=== PATIENT | female | born 2000 | race Caucasian/White ===

== ENCOUNTER 2021-01-20 17:34 | Emergency (ER) | payer OTHER ==
[~2021-01-20] VITALS: Ht 175.2 cm; Wt 127.0 kg
== END 2021-01-20 20:32 | disposition home or self-care (01) ==
LOC: ED 17:34
DX: S86.912A Strain of unspecified muscle(s) and tendon(s) at lower leg level, left leg, initial encounter (principal); X50.1XXA Overexertion from prolonged static or awkward postures, initial encounter; Y93.89 Activity, other specified; Y92.89 Other specified places as the place of occurrence of the external cause; Y99.9 Unspecified external cause status

== ENCOUNTER → 2021-05-12 | Outpatient (CLI) | payer OTHER | END | disposition home or self-care (01) | LOC: LAB 14:53 | PROVIDERS: ATTEND Internal Medicine | DX: Z20.822 Contact with and (suspected) exposure to COVID-19 (principal) ==

== ENCOUNTER 2022-11-14 16:46 | Emergency (ER) | payer OTHER ==
[~2022-11-14] VITALS: Ht 175.2 cm; Wt 125.2 kg
== END 2022-11-14 18:35 | disposition short-term general hospital (02) ==
LOC: ED 16:46
DX: O42.913 Preterm premature rupture of membranes, unspecified as to length of time between rupture and onset of labor, third trimester (principal); Z3A.30 30 weeks gestation of pregnancy

== ENCOUNTER 2023-06-21 19:24 | Emergency (ER) | payer OTHER ==
[~2023-06-21] VITALS: Ht 175.2 cm; Wt 122.5 kg
[2023-06-21] MEDS ORDERED: VIBRAMYCIN100 MG PO (21:45)
== END 2023-06-21 21:54 | disposition home or self-care (01) ==
LOC: ED 19:24
DX: S30.861A Insect bite (nonvenomous) of abdominal wall, initial encounter (principal); Z87.891 Personal history of nicotine dependence; W57.XXXA Bitten or stung by nonvenomous insect and other nonvenomous arthropods, initial encounter; Y93.89 Activity, other specified; Y92.89 Other specified places as the place of occurrence of the external cause; Y99.8 Other external cause status

== ENCOUNTER 2024-07-25 21:49 | Emergency (ER) | payer OTHER ==
[~2024-07-25] VITALS: Ht 175.2 cm; Wt 140.8 kg
[~2024-07-25 21:49] MED LIST: VIBRAMYCIN100 MG PO
[2024-07-25] MEDS ORDERED: AMOX-CLAV 875-1 EACH PO (22:04)
[2024-07-25] MEDS ORDERED: Acetaminophen/Hydrocodone 5 MG/325 MG TABLET PO ONE (22:05)
[2024-07-25] MEDS ORDERED: Amoxicillin/Clavulanate Pota 875 MG TAB PO ONE (22:05)
== END 2024-07-25 22:21 | disposition home or self-care (01) ==
LOC: ED 21:49
DX: S02.5XXA Fracture of tooth (traumatic), initial encounter for closed fracture (principal); K04.7 Periapical abscess without sinus; Z79.2 Long term (current) use of antibiotics; X58.XXXA Exposure to other specified factors, initial encounter; Y93.89 Activity, other specified; Y92.89 Other specified places as the place of occurrence of the external cause; Y99.8 Other external cause status

== ENCOUNTER 2024-07-29 21:30 | Emergency (ER) | payer OTHER ==
[~2024-07-29] VITALS: Ht 175.2 cm; Wt 95.3 kg
[~2024-07-29 21:30] MED LIST changes: +AMOX-CLAV 875-1 EACH PO
[2024-07-29] MEDS ORDERED: AMITRIPTYLINE50 MG PO (21:44)
[2024-07-29] MEDS ORDERED: SODIUM CHLORIDE 0.9% 1,000 ML IV ONE (22:10)
[2024-07-29] MEDS ORDERED: Ondansetron Hydrochloride 4 MG/2 ML VIAL IV ONE (22:10)
[2024-07-29] MEDS ORDERED: Ketorolac Tromethamine 15 MG/ML VIAL IV ONE (22:10)
[2024-07-29] MEDS ORDERED: IOHEXOL 300 MG/ML 100 ML VIAL IV ONE (22:15)
[2024-07-29 22:25] LABS: BASO % 0.2 % (0.0-1.0); EOS # 0.2 10*3/uL (0.0-0.4); EOS % 1.3 % (1.0-4.0); HEMATOCRIT 44.9 % (37.0-47.0); LYMPH # 4.1 10*3/uL (1.3-4.4); LYMPH % 30.6 % (27.0-41.0); MEAN CELL VOLUME 85.7 fl (81.0-99.0); MEAN CORPUSCULAR HGB 26.7 pg (27.0-31.0); MEAN CORPUSCULAR HGB CONC 31.2 g/dl (33.0-37.0); MEAN PLATELET VOLUME 11.3 fl (9.6-12.3); MONO # 0.8 10*3/uL (0.1-1.0); MONO % 6.1 % (3.0-9.0); NEUT # 8.2 10*3/uL (2.3-7.9); NEUT % 61.4 % (47.0-73.0); PLATELET COUNT AUTOMATED 321 10*3/uL (130-400); RED BLOOD COUNT 5.24 10*6/uL (4.10-5.10); WHITE BLOOD COUNT 13.4 10*3/uL (4.8-10.8)
[2024-07-29 22:35] LABS: BILIRUBIN Negative (Negative); BLOOD 3+ (Negative); CLARITY Cloudy (Clear); COLOR Orange (Yellow); GLUCOSE Negative (Negative); KETONE Trace (Negative); LEUKO ESTERASE 1+ (Negative); NITRITE Negative (Negative); PH 5.5 (4.5-8.0); SPECIFIC GRAVITY >= 1.030 (1.001-1.030)
[2024-07-29 22:49] LABS: RBC TNTC rbc/hpf (0-2); WBC TNTC wbc/hpf (0-5)
[2024-07-29 22:50] LABS: BUN 10 mg/dl (9-23); CHLORIDE 108 mmol/L (98-107); LIPASE 36 U/L (12-53)
== END 2024-07-30 01:15 | disposition home or self-care (01) ==
LOC: ED 21:30
PROVIDERS: Nurse Practitioner Family
DX: R10.12 Left upper quadrant pain (principal); D72.829 Elevated white blood cell count, unspecified; M25.511 Pain in right shoulder; R42 Dizziness and giddiness; R11.0 Nausea; F32.A Depression, unspecified; Z87.891 Personal history of nicotine dependence; Z90.49 Acquired absence of other specified parts of digestive tract; Z98.890 Other specified postprocedural states

== ENCOUNTER 2024-09-20 08:17 | Emergency (ER) | payer OTHER ==
[~2024-09-20] VITALS: Ht 175.2 cm; Wt 140.6 kg
[~2024-09-20 08:17] MED LIST changes: +AMITRIPTYLINE50 MG PO
[2024-09-20] MEDS ORDERED: Amoxicillin/Clavulanate Pota 875 MG TAB PO ONE (08:40)
[2024-09-20] MEDS ORDERED: AMOX-CLAV 875-1 EACH PO (08:41)
== END 2024-09-20 09:06 | disposition home or self-care (01) ==
LOC: ED 08:17
DX: H66.91 Otitis media, unspecified, right ear (principal); R05.9 Cough, unspecified; F17.210 Nicotine dependence, cigarettes, uncomplicated; Z90.49 Acquired absence of other specified parts of digestive tract; Z98.890 Other specified postprocedural states

== ENCOUNTER 2024-09-27 09:36 | Emergency (ER) | payer OTHER ==
[~2024-09-27] VITALS: Ht 175.2 cm; Wt 139.1 kg
[2024-09-27] MEDS ORDERED: Ketorolac Tromethamine 30 MG/ML VIAL IM ONE (10:10)
[2024-09-27] MEDS ORDERED: Acetaminophen/Oxycodone 5 MG/325 MG TABLET PO ONE (10:10)
[2024-09-27] MEDS ORDERED: CYCLOBENZAPRINE10 MG PO (10:11)
[2024-09-27] MEDS ORDERED: MELOXICAM15 MG PO (10:11)
== END 2024-09-27 10:55 | disposition home or self-care (01) ==
LOC: ED 09:36
DX: M54.42 Lumbago with sciatica, left side (principal); M54.41 Lumbago with sciatica, right side; Z90.49 Acquired absence of other specified parts of digestive tract